=== PATIENT | female | born 1980 | race Caucasian/White ===

== ENCOUNTER 2020-04-05 23:18 | Emergency (ER) | payer SELFPAY ==
[2020-04-05] MEDS ORDERED: KETOROLAC TROMETHAMINE 60 MG/2 ML VIAL ONE (23:52)
== END 2020-04-06 00:43 | disposition home or self-care (01) ==
LOC: EDH 23:18
DX: M77.31 Calcaneal spur, right foot (principal)
CPT/HCPCS: 73620; 96372; 99283; J1885